=== PATIENT | female | born 1975 | race African-American/Black ===

== ENCOUNTER 2017-04-29 10:20 | Emergency (ER) | payer MEDICAID ==
[~2017-04-29] VITALS: Ht 154.9 cm; Wt 54.0 kg
[~2017-04-29 10:20] MED LIST: BENZ1TAB7 GT; HAL5 GT
[2017-04-29] MEDS ORDERED: ALBUTEROL (0.083%) 2.5MG/3ML NEB HHN ONE (14:45)
[2017-04-29 15:13] LABS: BASOPHILS % 0.7 % (0.0-2.0); EOSINOPHILS % 1.4 % (0.0-5.0); HEMATOCRIT. 37.7 % (36.0-48.0); HEMOGLOBIN. 12.9 g/dL (12.0-16.0); LYMPHOCYTES % 53.8 % (20.0-50.0); MEAN CORPUSCULAR VOLUME 99.5 fL (81.0-99.0); MEAN PLATELET VOLUME 6.9 fl (7.4-10.4); MONOCYTES % 5.7 % (2.0-8.0); NEUTROPHILS % 38.4 % (40.0-76.0); PLATELET 269 x1000/uL (130-400); RED BLOOD CELL COUNT 3.79 mill/uL (4.2-5.4); RED CELL DISTRIBUTION WIDTH 13.1 % (11.6-14.6)
[2017-04-29] MEDS ORDERED: ACETAMINOPHEN 325MG TABLET PO ONE (15:15)
[2017-04-29 15:25] LABS: CARBON DIOXIDE 28 mEq/L (21-32); CHLORIDE 107 mEq/L (98-107)
[2017-04-29 15:27] LABS: HCG SCREEN NEGATIVE
[2017-04-29 16:00] VITALS: BP 94/68
== END 2017-04-29 17:55 | disposition home or self-care (01) ==
LOC: ER 12:21
DX: J06.9 Acute upper respiratory infection, unspecified (principal); F31.9 Bipolar disorder, unspecified; F17.210 Nicotine dependence, cigarettes, uncomplicated; F12.90 Cannabis use, unspecified, uncomplicated; R03.0 Elevated blood-pressure reading, without diagnosis of hypertension
CPT/HCPCS: 36415; 71045; 80048; 84703; 85025; 87804; 94640; 99285; J7611

== ENCOUNTER 2024-01-15 20:25 | Inpatient (IN) | payer MEDICAID, OTHER ==
[~2024-01-15] VITALS: Ht 157.5 cm; Wt 54.4 kg
[~2024-01-15 20:25] MED LIST changes: -BENZ1TAB7 GT; +BENZ1TAB79 GT; -HAL5 GT; +HALO5TAB2 GT
[2024-01-15] MEDS ORDERED: ONDANSETRON HCL 4MG/2ML INJ IV ONE (21:00)
[2024-01-15 23:38] LABS: BASOPHILS % 1.2 % (0.0-2.0); HEMOGLOBIN. 14.4 g/dL (12.0-16.0); LYMPHOCYTES % 15.9 % (20.0-50.0); MEAN CORPUSCULAR HEMOGLOBIN 33.5 pg (28.0-32.0); MEAN CORPUSCULAR HGB CONC 34.3 g/dL (31.0-37.0); MEAN CORPUSCULAR VOLUME 97.6 fL (81.0-99.0); MEAN PLATELET VOLUME 7.6 fl (7.4-10.4); MONOCYTES % 2.1 % (2.0-8.0); NEUTROPHILS % 80.8 % (40.0-76.0); PLATELET 311 x1000/uL (130-400); RED CELL DISTRIBUTION WIDTH 13.7 % (11.6-14.6); WHITE BLOOD COUNT 8.2 x1000/uL (4.5-11.0)
[2024-01-15 23:43] LABS: CHLORIDE 103 mEq/L (98-107); POTASSIUM 4.2 mEq/L (3.5-5.1); SODIUM 135 mEq/L (136-145)
[2024-01-15 23:44] LABS: CALCIUM 10.2 mg/dL (8.7-10.4); CARBON DIOXIDE 24 mEq/L (21-32)
[2024-01-15 23:46] LABS: PROTHROMBIN TIME 11.6 sec (9.6-11.0)
[2024-01-15 23:48] LABS: CREATININE 0.7 mg/dL (0.6-1.0)
[2024-01-15 23:49] LABS: GLUCOSE 146 mg/dL (70-105); UREA NITROGEN BLOOD 5 mg/dL (9-23)
[2024-01-15 23:50] LABS: ALANINE AMINOTRANSFERASE 14 IU/L (10-49)
[2024-01-15 23:51] LABS: ASPARTATE AMINOTRANSFERASE 20 IU/L (<34); BILIRUBIN DIRECT 0.2 mg/dL (<=3.0); BILIRUBIN TOTAL 0.7 mg/dL (0.1-1.0); PROTEIN TOTAL 7.6 g/dL (6.0-8.3)
[2024-01-15 23:52] LABS: HCG SCREEN NEGATIVE
[2024-01-16] MEDS: SODIUM CHLORIDE 0.9% 1,000 ML IV ONE (02:00)
[2024-01-16] MEDS: ONDANSETRON HCL 4MG/2ML INJ IV NR (02:50)
[2024-01-16 04:00] VITALS: BP 165/86; PULSE 61; RESP 18; TEMP 36.00288; O2SAT 100
[2024-01-16 04:10] VITALS: BP 165/86; PULSE 61; RESP 18; TEMP 36.0288
[2024-01-16] MEDS ORDERED: HYDRALAZINE 20MG/ML VIAL IV PRN ×3 (04:30→12:30)
[2024-01-16] MEDS ORDERED: TRAZ-251 MT (04:36)
[2024-01-16] MEDS ORDERED: BUPR75TA8 MT (04:36)
[2024-01-16] MEDS ORDERED: METF-873 MT (04:36)
[2024-01-16] MEDS ORDERED: HYDRALAZINE 10 MG in SODIUM CHLORIDE 0.9% 49.5 ML IV PRN (04:45)
[2024-01-16] MEDS ORDERED: IPRATROPIUM/ALBUTEROL 0.5-3(2.5)MG/3ML NEB HHN PRN (05:30)
[2024-01-16] MEDS ORDERED: DEXTROSE 50% WATER 50ML SYRINGE IV PRN (05:30)
[2024-01-16] MEDS ORDERED: ACETAMINOPHEN 325MG TABLET PO PRN (05:30)
[2024-01-16] MEDS ORDERED: ONDANSETRON HCL 4MG/2ML INJ IV PRN ×2 (05:30→07:45)
[2024-01-16] MEDS: CLONIDINE 0.1MG TABLET PO PRN (05:53)
[2024-01-16] MEDS: BLOOD SUGAR DIAGNOSTIC STRIP TEST SCH (07:20)
[2024-01-16] MEDS ORDERED: IOHEXOL-300 100 ML BOTTLE ONE (07:20)
[2024-01-16 08:00] VITALS: BP 141/92; PULSE 63; RESP 18; TEMP 35.5584; O2SAT 99
[2024-01-16] MEDS: DEXT 5%/0.45% NACL 1000ML 1,000 ML IV SCH (08:00)
[2024-01-16] MEDS: PANTOPRAZOLE SODIUM 40 MG/VIAL IV SCH (09:06)
[2024-01-16 09:45] LABS: BASOPHILS % 0.7 % (0.0-2.0); DIFFERENTIAL COMMENT 0; EOSINOPHILS % 0.5 % (0.0-5.0); HEMATOCRIT. 40.4 % (36.0-48.0); HEMOGLOBIN. 13.5 g/dL (12.0-16.0); LYMPHOCYTES % 21.3 % (20.0-50.0); MEAN CORPUSCULAR HEMOGLOBIN 33.6 pg (28.0-32.0); MEAN CORPUSCULAR HGB CONC 33.4 g/dL (31.0-37.0); MEAN CORPUSCULAR VOLUME 100.6 fL (81.0-99.0); MEAN PLATELET VOLUME 7.4 fl (7.4-10.4); NEUTROPHILS % 69.5 % (40.0-76.0); PLATELET 270 x1000/uL (130-400); RED BLOOD CELL COUNT 4.01 mill/uL (4.2-5.4); RED CELL DISTRIBUTION WIDTH 13.7 % (11.6-14.6); WHITE BLOOD COUNT 9.4 x1000/uL (4.5-11.0)
[2024-01-16 10:11] LABS: CALCIUM 9.5 mg/dL (8.7-10.4); CARBON DIOXIDE 23 mEq/L (21-32); CHLORIDE 104 mEq/L (98-107); POTASSIUM 3.5 mEq/L (3.5-5.1); SODIUM 136 mEq/L (136-145)
[2024-01-16 10:16] LABS: CREATINE KINASE MB FRACTION 3.1 ng/mL (0.5-3.6); CREATININE 0.7 mg/dL (0.6-1.0); GLUCOSE 110 mg/dL (70-105); TROPONIN I HIGH SENSITIVITY 9 ng/L (3.0-34)
[2024-01-16 10:17] LABS: LDL CHOLESTEROL 99 mg/dL (5-100); TRIGLYCERIDE 64 mg/dL (0-150); UREA NITROGEN BLOOD < 5 mg/dL (9-23)
[2024-01-16 10:18] LABS: CHOLESTEROL 171 mg/dL (<200); HDL CHOLESTEROL 56 mg/dL (>65)
[2024-01-16 10:19] LABS: CREATINE KINASE 156 IU/L (34-145)
[2024-01-16 12:30] VITALS: BP 120/66; PULSE 71; RESP 18; TEMP 36.28068; O2SAT 100
[2024-01-16 16:00] VITALS: BP 102/63; PULSE 54; RESP 18; TEMP 36.55848; O2SAT 100
[2024-01-16 17:20] LABS: CREATINE KINASE MB FRACTION 3.7 ng/mL (0.5-3.6)
[2024-01-16 18:26] VITALS: BP 138/60; PULSE 68; TEMP 97.6; O2SAT 98
== END 2024-01-16 19:38 | disposition home or self-care (01) | DRG 243 ==
LOC: ER 20:25 → 6EST 01-16 01:39 → EDBEDREQ 01-16 01:48 → 7EST 01-16 12:22
PROVIDERS: ADMIT Preventive Medicine Clinical Informatics; ATTEND Preventive Medicine Clinical Informatics
DX: K21.9 Gastro-esophageal reflux disease without esophagitis (principal); E87.1 Hypo-osmolality and hyponatremia; K80.20 Calculus of gallbladder without cholecystitis without obstruction; F17.210 Nicotine dependence, cigarettes, uncomplicated; R00.1 Bradycardia, unspecified; E11.9 Type 2 diabetes mellitus without complications; F12.10 Cannabis abuse, uncomplicated; I10 Essential (primary) hypertension; Z59.00 Homelessness unspecified; E86.0 Dehydration
CPT/HCPCS: 36415; 71045; 74177; 80048; 80061; 80076; 82550; 82553; 82962; 83036; 83605; 83735; 83930; 84100; 84145; 84484; 84703; 85025; 99285; J2405; J2470; J7030; Q9967